=== PATIENT | female | born 1985 | race Caucasian/White ===

== ENCOUNTER 2019-06-07 14:25 | Emergency (ER) | payer OTHER ==
--- NOTE | 2019-06-07 16:22 | ER Document Report ---
ED Medical Screen (RME) - General Chief Complaint: Palpitations Stated Complaint: HEART RACING/CHEST PAIN Time Seen by Provider: 06/07/19 16:15 Notes: HPI: 34-year-old female presenting for tachycardia today. Patient went to the gym and as she left the gym she felt her heart rate elevates significantly with some chest pain and shortness of breath. States that on her watch her heart rate was between 150 and 160. States that she is just starting to feel like her heart rate is decreasing at this time. No prior history of anything similar. Patient is not on oral control has not had recent travel or prolonged immobilization. Denies leg pain. I have greeted and performed a rapid initial assessment of this patient. A comprehensive ED assessment and evaluation of the patient, analysis of test results and completion of the medical decision making process will be conducted by additional ED providers PHYSICAL EXAMINATION: GENERAL: Well-appearing, well-nourished and in mild acute distress. HEAD: Atraumatic, normocephalic. EYES: sclera anicteric, conjunctiva are normal. ENT: Moist mucous membranes. NECK: Normal range of motion LUNGS: Normal work of breathing, clear to auscultation HEART: 2+ radial pulses bilaterally, mild tachycardia ABD: limited by positioning for exam in triage. EXTREMITIES: no pitting or edema. No cyanosis. NEUROLOGICAL: No focal neurological deficits. Moves all extremities spontaneously and on command. PSYCH: Anxious mood, normal affect. SKIN: Warm, Dry, normal turgor, no rashes or lesions noted. TRAVEL OUTSIDE OF THE [place] IN LAST 30 DAYS: No - Related Data Allergies/Adverse Reactions: Penicillins Allergy (Verified 06/07/19 16:14) Past Medical History - Social History Frequency of alcohol use: None Drug Abuse: None Physical Exam - Vital signs Vitals: Temp Pulse Resp BP Pulse Ox 98 F 103 H 16 127/79 H 100 06/07/19 14:41 06/07/19 14:41 06/07/19 14:41 06/07/19 14:41 06/07/19 14:41 Course - Vital Signs Vital signs: Temp Pulse Resp BP Pulse Ox 98 F 103 H 16 127/79 H 100 06/07/19 14:41 06/07/19 14:41 06/07/19 14:41 06/07/19 14:41 06/07/19 14:41
--- NOTE | 2019-06-07 16:45 | RADIOLOGY REPORT (SQ) ---
EXAM DESCRIPTION: CHEST 2 VIEWS COMPLETED DATE/TIME: 06/07/2019 4:37 pm REASON FOR STUDY: tachycardia COMPARISON: None. EXAM PARAMETERS: NUMBER OF VIEWS: two views TECHNIQUE: Digital Frontal and Lateral radiographic views of the chest acquired. RADIATION DOSE: NA LIMITATIONS: none FINDINGS: LUNGS AND PLEURA: No opacities, masses or pneumothorax. No pleural effusion. MEDIASTINUM AND HILAR STRUCTURES: No masses or contour abnormalities. HEART AND VASCULAR STRUCTURES: Heart normal size. No evidence for failure. BONES: No acute findings. HARDWARE: None in the chest. OTHER: No other significant finding. IMPRESSION: NO ACUTE RADIOGRAPHIC FINDING IN THE CHEST. TECHNICAL DOCUMENTATION: JOB ID: [id number] 2010 [employer]- All Rights Reserved Reading location - IP/workstation name: [email or web address]
[2019-06-07 17:20] LABS: ABSOLUTE EOSINOPHILS # (AUTO) 0.1 10^3/uL (0.0-0.6); ABSOLUTE LYMPHOCYTES (AUTO) 2.2 10^3/uL (0.5-4.7); ABSOLUTE MONOCYTES (AUTO) 0.8 10^3/uL (0.1-1.4); ABSOLUTE NEUT (AUTO) 7.7 10^3/uL (1.7-8.2); BASOPHILS % (AUTO) 0.4 % (0-2); EOSINOPHILS % (AUTO) 1.1 % (0-6); HEMOGLOBIN 14.6 g/dL (12.0-15.5); LYMPHOCYTES % (AUTO) 20.5 % (13-45); MEAN CORPUSCULAR HEMOGLOBIN 30.9 pg (27.0-33.4); MEAN CORPUSCULAR HGB CONC 35.6 g/dL (32.0-36.0); MEAN CORPUSCULAR VOLUME 87 fl (80-97); MONOCYTES % (AUTO) 7.1 % (3-13); PLATELET COUNT 298 10^3/uL (150-450); RED BLOOD COUNT 4.73 10^6/uL (3.72-5.28); RED CELL DISTRIBUTION WIDTH 12.3 % (11.5-14.0); SEGMENTED NEUTROPHILS % (AUTO) 70.9 % (42-78); TOTAL CELLS COUNTED % (AUTO) 100 %; WHITE BLOOD COUNT 10.9 10^3/uL (4.0-10.5)
--- NOTE | 2019-06-07 17:27 | EKG REPORT ---
SEVERITY:- OTHERWISE NORMAL ECG - SINUS TACHYCARDIA LEFT AXIS DEVIATION : Confirmed by: Samira Martin MD 07-Jun-2019 17:26:13
[2019-06-07 17:46] LABS: ALBUMIN 4.7 g/dL (3.5-5.0); ALKALINE PHOSPHATASE 61 U/L (38-126); ANION GAP 8 (5-19); ASPARTATE AMINO TRANSFERASE 32 U/L (14-36); BILIRUBIN,TOTAL 0.4 mg/dL (0.2-1.3); BLOOD UREA NITROGEN 10 mg/dL (7-20); CALCIUM 9.6 mg/dL (8.4-10.2); CARBON DIOXIDE 28 mmol/L (22-30); CHLORIDE 104 mmol/L (98-107); GLUCOSE 95 mg/dL (75-110); POTASSIUM 4.6 mmol/L (3.6-5.0)
--- NOTE | 2019-06-07 22:11 | ER Document Report ---
ED Cardiac - General Chief Complaint: Palpitations Stated Complaint: HEART RACING/CHEST PAIN Time Seen by Provider: 06/07/19 16:15 Primary Care Provider: DERIK MONTGOMERY MD [ACTIVE STAFF] - Follow up as needed KAMI SKELTON MD [ACTIVE PROVISIONAL STAFF] - Follow up as needed Mode of Arrival: Ambulatory Information source: Patient Notes: Otherwise healthy 34-year-old female presents emergency department chief complaint palpitations. Patient reports this began after she was working out at the gym today. She reports she drinks caffeine, only 1 cup of coffee per day. She reports she had a history of palpitations with 1 of her pregnancies. She has seen core filer and had an echocardiogram but that was several years ago. TRAVEL OUTSIDE OF THE [place] IN LAST 30 DAYS: No - Related Data Allergies/Adverse Reactions: Penicillins Allergy (Verified 06/07/19 16:14) Past Medical History - General Information source: Patient - Social History Smoking Status: Never Smoker Frequency of alcohol use: None Drug Abuse: None Family History: Reviewed & Not Pertinent Patient has suicidal ideation: No Patient has homicidal ideation: No - Medical History Medical History: Negative - Past Medical History Cardiac Medical History: Reports: Other - palpitations during Review of Systems - Review of Systems Cardiovascular: Palpitations -: Yes All other systems reviewed and negative Physical Exam - Vital signs Vitals: Temp Pulse Resp BP Pulse Ox 98.0 F 103 H 16 127/79 H 100 06/07/19 14:38 06/07/19 14:38 06/07/19 14:38 06/07/19 14:38 06/07/19 14:38 - Notes Notes: PHYSICAL EXAMINATION: GENERAL: Well-appearing, well-nourished and in no acute distress. HEAD: Atraumatic, normocephalic. EYES: Pupils equal round and reactive to light, extraocular movements intact, conjunctiva are normal. ENT: Nares patent, oropharynx clear without exudates. Moist mucous membranes. NECK: Normal range of motion, supple without lymphadenopathy LUNGS: Breath sounds clear to auscultation bilaterally and equal. No wheezes rales or rhonchi. HEART: Regular rate and rhythm without murmurs ABDOMEN: Soft, nontender, nondistended abdomen. No guarding, no rebound. No ma sses appreciated. Female : deferred Musculoskeletal: Normal range of motion, no pitting or edema. No cyanosis. NEUROLOGICAL: Cranial nerves grossly intact. Normal speech, normal gait. Normal sensory, motor exams PSYCH: Normal mood, normal affect. SKIN: Warm, Dry, normal turgor, no rashes or lesions noted. Course - Re-evaluation Re-evalutation: Patient appears well, nontoxic, physical exam is unremarkable. Patient denies any palpitations occurring while in the emergency department. Her lab work-up was unremarkable. Her EKG shows a sinus tachycardia, rate 112, QTc 459, left axis deviation, no ST segment elevations or depressions to suggest ischemia. Patient does not excessively use caffeine. Her test was negative. She does report history of palpitations with previous pregnancies, she states that she was supposed to follow-up with cardiology and she did not. Patient was given information for cardiology clinic encouraged her to please follow-up with them for consideration of Holter monitoring. She was also invited to return to the emergency department for any new or worsening symptoms at any time. - Vital Signs Vital signs: Temp Pulse Resp BP Pulse Ox 97.5 F 81 18 135/90 H 100 06/07/19 22:44 06/07/19 22:44 06/07/19 22:44 06/07/19 22:44 06/07/19 22:44 - Laboratory Result Diagrams: 06/07/19 16:55 06/07/19 16:55 Laboratory results interpreted by me: 06/07/19 06/07/19 16:55 16:55 WBC 10.9 H Magnesium 2.6 H ALT 36 H Discharge - Discharge Clinical Impression: Palpitations Condition: Stable Disposition: HOME, SELF-CARE Additional Instructions: Please follow-up with your primary care doctor or a core filer regarding your palpitations. Return if you develop chest pain, shortness of breath, pass out, or have any other symptoms that are worrisome to you. Referrals: DERIK MONTGOMERY MD [ACTIVE STAFF] - Follow up as needed KAMI SKELTON MD [ACTIVE PROVISIONAL STAFF] - Follow up as needed
[2019-06-07 22:18] VITALS: BP 135/90
== END 2019-06-07 22:44 | disposition home or self-care (01) ==
LOC: ER 14:25
DX: R00.2 Palpitations (principal); R07.9 Chest pain, unspecified; Z88.0 Allergy status to penicillin
CPT/HCPCS: 36415; 71046; 80053; 83735; 84443; 84484; 84703; 85025; 93005; 93010; 99285